=== PATIENT | female | born 1950 | race Caucasian/White ===

== ENCOUNTER 2017-06-11 15:25 | Emergency (ER) | payer BC ==
--- NOTE | 2017-06-11 16:54 | RAD ---
PORTABLE CHEST 1 VIEW: Date: 06/11/17 Time: 1557 hours HISTORY: Cough. FINDINGS: Comparison made with exam of 01/06/06. There are postop changes and metallic hardware in the right clavicle. The heart size is normal. The l ungs are expanded without focal areas of consolidation, pneumothorax, or pleural effusions. IMPRESSION: No radiographic evidence of acute cardiopulmonary process. POS: H
== END 2017-06-11 16:11 | disposition home or self-care (01) ==
LOC: SCSER 15:25
DX: J10.1 Influenza due to other identified influenza virus with other respiratory manifestations (principal); E78.5 Hyperlipidemia, unspecified; I10 Essential (primary) hypertension; G43.909 Migraine, unspecified, not intractable, without status migrainosus; F41.9 Anxiety disorder, unspecified; Z86.73 Personal history of transient ischemic attack (TIA), and cerebral infarction without residual deficits
CPT/HCPCS: 71045

== ENCOUNTER 2018-01-02 09:19 | Observation (INO) | payer BC ==
[2018-01-02 09:43] LABS: #Eosinphils 0.2 thou/uL (0.0-0.7); #Lymphocytes 1.7 thou/uL (1.20-3.40); #Monocytes 0.9 thou/uL (0.11-0.59); #Neutrophils 8.8 thou/uL (1.40-6.50); %Basophils 0.1 % (0.0-1.0); %Eosinophils 1.7 % (0.0-10.0); %Lymphocytes 14.5 % (21.0-51.0); %Monocytes 7.4 % (0.0-10.0); %Neutrophils 76.3 % (42.0-75.0); Hemoglobin 14.5 g/dL (12.0-16.0); Mean Corpuscular HGB CONC 33.3 g/dL (32.0-36.0); Mean Corpuscular Hemoglobin 29.5 pg (27.0-31.0); Mean Corpuscular Volume 88.7 fL (78.0-98.0); Mean Platelet Volume 6.8 fL (7.4-10.4); Platelet Count 291 thou/uL (130-400); RBC Distribution Width 12.9 % (11.5-14.5); Red Blood Cell (RBC) Count 4.91 mill/uL (4.20-5.40); White Blood Cell (WBC) Count 11.5 thou/uL (4.8-10.8)
[2018-01-02 10:07] LABS: ALT (SGPT) 14 U/L (8-55); AST (SGOT) 17 U/L (5-34); Albumin 4.2 g/dL (3.4-4.8); Alkaline Phosphatase 59 U/L (40-150); Anion Gap 12 mmol/L (10-20); BUN (Urea Nitrogen) 10 mg/dL (9.8-20.1); Bilirubin, Total 1.5 mg/dL (0.2-1.2); CK (CPK) 36 U/L (29-168); Calc. Creatinine Clearance 0 mL/min (70-130); Calcium 9.7 mg/dL (7.8-10.44); Carbon Dioxide 24 mmol/L (23-31); Chloride 104 mmol/L (98-107); Estimated GFR-MDRD 66; Globulin 2.8 g/dL (2.4-3.5); Glucose 128 mg/dL (80-115); Lipase 39 U/L (8-78); Potassium 3.5 mmol/L (3.5-5.1); Sodium 136 mmol/L (136-145)
[2018-01-02 10:11] LABS: CKMB 1.1 ng/mL (0-6.6); Troponin I Less than 0.010 ng/mL (< 0.028)
--- NOTE | 2018-01-02 11:13 | RAD ---
CHEST 1 VIEW: HISTORY: Chest pain. COMPARISON: Radiograph 06/11/17. FINDINGS: Lungs are without focal confluent airspace consolidation, pneumothorax, or effusion. Plate and screw fixation of the right clavicle. No acute osseous abnormality. Cardiac silhouette and mediastinal c ontours are similar. IMPRESSION: No acute intrathoracic abnormality. POS: TPC
[2018-01-02] MEDS ORDERED: Acetaminophen 500 MG TAB ONE (12:00)
[2018-01-02] MEDS ORDERED: Ondansetron HCl/PF 4 MG/2 ML Vial ONE (12:00)
[2018-01-02 13:58] LABS: Troponin I Less than 0.010 ng/mL (< 0.028)
[2018-01-02 15:31] VITALS: BMI 32.1
[2018-01-02] MEDS ORDERED: Prevnar 13-Val Conj/PF 0.5 ML SYRINGE IM ONE (15:45)
[2018-01-02] MEDS ORDERED: cloNIDine 0.1 MG TAB PO PRN (16:05)
[2018-01-02] MEDS ORDERED: Ondansetron HCl/PF 4 MG/2 ML Vial IVP PRN (16:05)
[2018-01-02] MEDS ORDERED: Nitroglycerin 0.4 MG TAB (25 Tab Bottle) PO PRN (16:05)
[2018-01-02] MEDS ORDERED: hydrALAZINE 20 MG/ML VIAL SLOW IVP PRN (16:05)
[2018-01-02] MEDS ORDERED: Acetaminophen 500 MG TAB PO PRN (16:05)
[2018-01-02] MEDS ORDERED: Ondansetron ODT 4 MG TAB PO PRN (16:05)
[2018-01-02 16:20] LABS: Troponin I Less than 0.010 ng/mL (< 0.028)
--- NOTE | 2018-01-02 19:58 | HP ---
PRIMARY CARE PROVIDER: Dr. Laboy. PRIMARY GUITAR MAKER: Dr. Carl Simon. CHIEF COMPLAINT: Chest pain. HISTORY OF PRESENT ILLNESS: This is a 67-year-old female who presented to [facility] Emergency Department complaining of bilateral central chest pressure, which began approximately 1 700 p.m. on 01/01/2018. The patient states it is difficult to take a deep breath during the episode and denied any recent change to her activity level, recent trauma, injury, cough, congestion, or feve r. The patient reported that she underwent Cardiol[facility] with negative results. The patient does admit to taking aspirin 81 mg daily, as w ell as her blood pressure and cholesterol medications. The patient denied any specific change to her activity level, but does admit to increased stress with the loss of her sister and niece within the last 3 months. The patient initially rated the pain as 8/10 in the emergency room, currently 2/10. The patient does relate associated shortness of breath and worse with sitting forward or turning her head. The patient denied any change to her bowel habits, vomiting, hematemesis, dysuria, or flank te nderness. In the emergency room, the patient underwent general evaluation with metabolic screening e ssentially negative. The patient received Tylenol 1000 mg x1 dose in addition to Zofran, morphine park lfate, transdermal nitroglycerin and aspirin. PAST MEDICAL HISTORY: 1. Hypertension. 2. Anxiety. 3. Hyperlipidemia. 4. Gastroesophageal reflux disease. 5. History of migraine headaches. 6. Ischemic CVA without residual deficit. PAST SURGICAL HISTORY: 1. Status post right foot surgery. 2. Status post hysterectomy. 3. Status post bilateral wrist surgery. 4. Status post cataract removal. 5. Status post hysterectomy. CURRENT MEDICATIONS: 1. Aspirin 81 mg 1 tab p.o. daily. 2. Lipitor 40 mg p.o. daily. 3. Calcium with vitamin D 250/100 mg 1 tab p.o. daily. 4. Citalopram 20 mg p.o. daily. 5. Hydrochlorothiazide 25 mg p.o. daily. 6. Protonix 40 mg p.o. at bedtime. ALLERGIES: TRIPTANS. FAMILY HISTORY: Positive for coronary artery disease. SOCIAL HISTORY: The patient resides in [place], [place]. . No alcohol, tobacco or illicit drug use. Functional of all activities of daily living. REVIEW OF SYSTEMS: The following complete review of systems was negative, except just stated per HPI . Constitutional: Weight loss or gain, ability to conduct usual activities. Skin: Rash, itching. Eyes: Double vision, pain. ENT/Mouth: Nose bleeding, neck stiffness, pain, tenderness. Cardiovas cular: Palpitations, dyspnea on exertion, orthopnea. Respiratory: Shortness of breath, wheezing, c ough, hemoptysis, fever or night sweats. Gastrointestinal: Poor appetite, abdominal pain, heartburn , nausea, vomiting, constipation, or diarrhea. Genitourinary: Urgency, frequency, dysuria, nocturia . Musculoskeletal: Pain, swelling. Neurologic/Psychiatric: Anxiety, depression. Allergy/Immunolo gic: Skin rash, bleeding tendency. PHYSICAL EXAMINATION: VITAL SIGNS: Currently blood pressure 117/65, pulse 62, respiratory rate 16, temperature 97.5 degree s Fahrenheit, O2 saturation 96% on room air. GENERAL APPEARANCE: This is a 67-year-old female, alert and oriented x3, pleasant, convers ant, in no acute distress. HEENT: Pupils are equal, round, and reactive to light and accommodation. Extraocular muscles are in tact. No scleral icterus, no conjunctival injection. Nares patent. OP is clear. Teeth in good re pair. NECK: Supple, no cervical adenopathy, no thyromegaly, no carotid bruits, no JVD appreciated. Cervic al spine with full active and passive range of motion. No meningeal signs appreciated. CHEST: Lungs are clear to auscultation bilaterally. CARDIOVASCULAR: S1, S2, without noted murmur, rub or gallop. ABDOMEN: Rounded, soft, nontender, nondistended. Bowel sounds are positive in all four quadrants. There is no hepatosplenomegaly, no abdominal bruits, no rebound or guarding appreciated. EXTREMITIES: Warm and dry with fair turgor. No clubbing, cyanosis or asymmetric edema appreciated. Pulses palpable distally at the dorsalis pedis, posterior tibial, and popliteal arteries bilaterally . Capillary refill less than 2 seconds. NEUROLOGIC: Cranial nerves II-XII are grossly intact. No focal or lateralizing signs appreciated. PERTINENT LABORATORY AND X-RAY FINDINGS: Basic metabolic profile within normal limits. Total biliru bin 1.5, AST 17, ALT 14, alkaline phosphatase 59. Troponin I negative x3. Lipase 39. CBC showed a white blood cell count of 11.5, hemoglobin 14.5, hematocrit 44, platelet count 291 with 76% neutrophi ls. Portable chest x-ray dated 01/02/2018 showed no acute cardiopulmonary process. EKG dated 01/02/2018 by my interpretation shows a sinus mechanism with heart rates in the 90s. Julissa l R-wave progression noted in the precordial leads. Left axis deviation noted. No acute ST-T wave c hanges appreciated. ASSESSMENT AND PLAN: 1. Chest pain. The patient will be placed in observation status. We will continue Cardiolite stres s testing with 2-day protocol. Continue aspirin 325 mg daily. Lipitor 40 mg daily. 2. Hypertension. Continue home blood pressure regimen to include hydrochlorothiazide 25 mg daily. Continue serial blood pressure monitoring. 3. Hyperlipidemia. Check fasting lipid profile in the a.m. Continue Lipitor 40 mg daily. 4. Anxiety disorder. Continue Celexa 20 mg daily. 5. Gastroesophageal reflux disease. Continue Pepcid 20 mg p.o. b.i.d. 6. Prophylaxis. Sequential compression devices while in bed. Pepcid 20 mg p.o. b.i.d. 7. Code status is full. Surrogate medical decision maker is patient's spouse.
[2018-01-02] MEDS: Famotidine 20 MG TAB PO SCH (21:03)
[2018-01-03] MEDS ORDERED: traMADol HCl 50 MG TAB PO SCH (04:15)
[2018-01-03 05:31] LABS: Anion Gap 11 mmol/L (10-20); BUN (Urea Nitrogen) 10 mg/dL (9.8-20.1); Calc. Creatinine Clearance 95 mL/min (70-130); Calcium 9.8 mg/dL (7.8-10.44); Carbon Dioxide 29 mmol/L (23-31); Cardiac Risk 3.4 (Less than 4.5); Chloride 103 mmol/L (98-107); Cholesterol 153 mg/dl (< 200 Desired); Estimated GFR-MDRD 68; Glucose 110 mg/dL (80-115); HDL Cholesterol 45 mg/dL (>60 Neg Risk); LDL Cholesterol, Calculated 94 mg/dL; Potassium 3.6 mmol/L (3.5-5.1); Sodium 139 mmol/L (136-145); Triglycerides 70 mg/dL (Less than 150)
[2018-01-03 05:35] LABS: Band 1 % (5-11); Eosinophils 2 % (0-10); Hemoglobin 13.9 g/dL (12.0-16.0); Lymphocytes 22 % (21-51); MDiff Complete? YES; Mean Corpuscular HGB CONC 32.4 g/dL (32.0-36.0); Mean Corpuscular Hemoglobin 28.9 pg (27.0-31.0); Mean Corpuscular Volume 89.3 fL (78.0-98.0); Mean Platelet Volume 7.1 fL (7.4-10.4); Monocytes 8 % (0-10); Neutrophil 65 % (42-75); Platelet Count 281 thou/uL (130-400); Reactive Lymphocytes 2 % (0-10); Red Blood Cell (RBC) Count 4.79 mill/uL (4.20-5.40)
[2018-01-03] MEDS: Famotidine 20 MG TAB PO SCH (08:51)
[2018-01-03] MEDS ORDERED: Citalopram 20 MG TAB PO SCH (09:00)
[2018-01-03] MEDS ORDERED: Hydrochlorothiazide 25 MG TAB PO SCH (09:00)
[2018-01-03] MEDS ORDERED: Calcium Carbonate + Vit D 1 TAB PO SCH (09:00)
[2018-01-03] MEDS ORDERED: Aspirin 325 MG TAB PO SCH (09:00)
[2018-01-03 12:39] VITALS: BP 115/56; TEMP 97.7
[2018-01-03] MEDS ORDERED: Aspirin/APAP/Caffeine Tab (Excedrin Migraine) PO SCH (12:45)
--- NOTE | 2018-01-03 15:07 | NM ---
NUCLEAR MEDICINE CARDIAC STRESS WITH EF AND WALL MOTION: HISTORY: Chest pain. COMPARISON: None. TECHNIQUE: A two day protocol was utilized. The patient was administered 27 millicuries of technetium 99m sesta mibi for rest imaging and 33 millicuries of technetium 99m sestamibi for stress imaging. Cardiac gat ing was performed. FINDINGS: There is homogeneous distribution of the radiotracer in the left ventricle on the stress nonattenuati on correction images. No evidence of reversibility. No fixed defect. End-diastolic volume is 61 mL . End-systolic volume is 10 mL. CARDIAC GATING: Normal motion and thickening. Ejection fraction 83%. IMPRESSION: 1. No reversibility or fixed defect. 2. Ejection fraction 83%. POS: JOSE
[2018-01-03] MEDS ORDERED: Atorvastatin Calcium 40 MG TAB PO SCH (21:00)
--- NOTE | 2018-01-04 01:09 | DIS ---
DATE OF ADMISSION: 01/02/2018 DATE OF DISCHARGE: 01/03/2018 DISCHARGE DIAGNOSES: 1. Chest pain, musculoskeletal. 2. Hypertension, stable. 3. Hyperlipidemia, stable. 4. Anxiety disorder. 5. Gastroesophageal reflux disease. CONSULTATIONS: None. PERTINENT LABORATORY AND X-RAY FINDINGS: Complete metabolic profile within normal limits. Troponin I negative x3. Total cholesterol 153, triglycerides 70, HDL 45, LDL 94, lipase 39. CBC showed a i te blood cell count ranging between 8.0-11.5, hemoglobin 14, platelet count 281. Portable chest x-ra y dated 01/02/2018 showed no acute cardiopulmonary process. Cardiolite stress test using 2-day regla col dated 01/02/2018 showed no evidence of reversible or fixed ischemia with calculated ejection frac tion of 83%. HOSPITAL COURSE: The patient was observed on the telemetry unit after initially presenting with cent ral chest pressure and pain. The patient underwent serial cardiac enzymes, which were negative x3 pr oceeding to 2-day Cardiolite stress test showing no evidence of reversible or fixed ischemia with martínez culated ejection fraction of 83%. Telemetry monitoring showed a sinus mechanism without evidence of acute arrhythmia or dysrhythmia, and patient overall remained clinically stable. I have examined the patient at the time of discharge and discussed followup instructions. The patient verbalizes unders tanding and agreement and ready for discharge on 01/03/2018. DISCHARGE MEDICATIONS: 1. Enteric coated aspirin 81 mg 1 tab p.o. daily. 2. Lipitor 40 mg 1 tab p.o. daily. 3. Calcium with vitamin D2 of 250/100 mg 1 tab p.o. daily. 4. Celexa 20 mg p.o. daily. 5. Hydrochlorothiazide 25 mg p.o. q.a.m. 6. Protonix 40 mg p.o. at bedtime. FOLLOWUP: The patient will follow up with Dr. Laboy within 7 days of discharge. CONDITION ON DISCHARGE: Stable. ACTIVITY: Ad romel. DIET: Heart healthy. CODE STATUS: FULL. DISPOSITION: Home on 01/03/2018.
--- NOTE | 2018-01-06 13:22 | EKG ---
Test Reason : ER Blood Pressure : / mmHG Vent. Rate : 095 BPM Atrial Rate : 095 BPM P-R Int : 154 ms QRS Dur : 080 ms QT Int : 342 ms P-R-T Axes : 047 -03 014 degrees QTc Int : 429 ms Normal sinus rhythm Low voltage QRS Borderline ECG Confirmed by NATALYA GRIGSBY ([id number]), photo editor YONAS KING ([id number]) on 01/06/2018 1:22:21 PM Referred By: Confirmed By:NATALYA GRIGSBY
== END 2018-01-03 16:21 | disposition home or self-care (01) ==
LOC: ERS 09:19 → 2SW 13:04
PROVIDERS: ADMIT Family Medicine; ATTEND Family Medicine
DX: R07.89 Other chest pain (principal); I10 Essential (primary) hypertension; E78.5 Hyperlipidemia, unspecified; K21.9 Gastro-esophageal reflux disease without esophagitis; F41.9 Anxiety disorder, unspecified; Z79.899 Other long term (current) drug therapy; Z88.8 Allergy status to other drugs, medicaments and biological substances
CPT/HCPCS: 36415; 71045; 78452; 80048; 80053; 80061; 82550; 82553; 83690; 84484; 85007; 85025; 85027; 93005; 93017; 94760; 96374; 96375; A9500; G0378; J2270; J2405

== ENCOUNTER 2022-02-22 13:33 | Outpatient (CLI) | payer MEDICARE, OTHER | END 2022-02-22 13:34 | disposition home or self-care (01) | LOC: BICMAMMO 13:33 | PROVIDERS: ATTEND Internal Medicine | DX: Z12.31 Encounter for screening mammogram for malignant neoplasm of breast (principal); Z80.3 Family history of malignant neoplasm of breast | CPT/HCPCS: 77063; 77067 ==

== ENCOUNTER 2023-04-11 12:18 | Outpatient (CLI) | payer MEDICARE | END 2023-04-11 12:19 | disposition home or self-care (01) | LOC: BICMAMMO 12:18 | PROVIDERS: ATTEND Internal Medicine | DX: Z12.31 Encounter for screening mammogram for malignant neoplasm of breast (principal); Z80.3 Family history of malignant neoplasm of breast | CPT/HCPCS: 77063; 77067 ==